=== PATIENT | female | born 1985 | race Caucasian/White ===

== ENCOUNTER → 2017-01-20 | Outpatient (CLI) | payer OTHER ==
[2017-01-20 15:12] VITALS: BP 126/84; PULSE 78; RESP 16; TEMP 98.6; BMI 38.4
--- NOTE | 2017-02-23 23:53 | P.PN ---
Progress Note - Text DATE OF CONSULTATION: 01/20/2017 CHIEF COMPLAINT: Bariatric assessment, initial. HISTORY OF PRESENT ILLNESS: Yomaira Lawson is a 31 -year-old female who reports a previous gastric bypass performed in 2015. Her highest weight is 330 pounds for a 5 foot, 9 inch frame. Her ideal body weight is 168 pounds. She was able to get down to 205 pounds. Thereafter she had been at least 4 times after her gastric bypass. Her weight slowly crept up 220 pounds. She does report lower back pain. She denies any current diabetes. Her weight had become more difficult to control as her in 2012 now 4 years ago. She then regained her weight up to 271 pounds[address] She had seen [address] Patel in [facility] who was our initial bariatric surgeon. She is in the [facility]. Since switch of her insurance to Medicaid, she has not had a consistent or structured bariatric follow-up. She had been placed on Effexor including Zoloft for which her weight gain has slowly increased. She reports feeling hungry all the time. Again, she has been placed on antidepressants due to within her family. She denies any abdominal pain or dumping syndrome. She reports that she has fairly young age children who are between 6 to 12 years. She does report intermittent troubles with panniculitis as well. Now she presents for further evaluation and management. At her height of 5 feet 9 inches, she comes in today weighing 260 pounds. She has maintained a 70 pound weight loss after 11 years. Percent excess weight loss is now reduced to 43%. She is 92 pounds overweight. Body mass index has been reduced from 48.8 down to 38.4. Sustained BMI point reduction is 10.4. PAST MEDICAL HISTORY: 1. Morbid obesity. 2. Depression. 3. Iron deficiency anemia. 4. Anxiety. 5. Ganglion cyst. PAST SURGICAL HISTORY: 1. Gastric bypass 2005 Dr. Patel. 2. Removal of ganglion cyst of the hand. 3. Tubal ligation. MEDICATIONS: 1. Multivitamin. 2. Melatonin. 3. Vitamin D. 4. Iron. 5. ( ). 6. Zoloft. 7. Xanax. ALLERGIES: Denies. SOCIAL HISTORY: Lifelong nontobacco user. She is a . FAMILY HISTORY: Pertinent for morbid obesity. REVIEW OF SYSTEMS: CONSTITUTIONAL: [place] body weight of 168 pounds. Highest weight 330 pounds. Present weight of 260 pounds. Maintained weight loss of 70 pounds. Maintained percent excess weight loss of 43%. She still 92 pounds overweight. Body mass index reduced from 48.8 down to 38.4. Total BMI point reduction of 10.4. HEENT: No reports of dysphagia. Troubles with vision, hearing or nosebleeds. ENDOCRINE: No reports of active diabetes, which is now resolved. No reports of thyroid disorders. RESPIRATORY: Previous history of sleep apnea, resolved. CARDIOVASCULAR: She denies any active hypertension. GASTROINTESTINAL: No reports of dumping syndrome or gastroesophageal reflux disease. She does report increased appetite. MUSCULOSKELETAL: Intermittent osteoarthritis of the lower back now resolved. NEURO: No reports of stroke or seizure disorder. PSYCH: History of depression including anxiety. NEUROLOGICAL: No report of stroke. PSYCH: History of depression without suicidal ideation. Dietary reports increase hunger. PHYSICAL EXAM: VITAL SIGNS: 98.6, 70, 16, 126/84; 5 foot 9, 260 pounds. Body mass and 38.4. GENERAL: Well-developed female in no acute distress. HEENT: No scleral icterus. Grossly intact. Moist buccal mucosa. NECK: Supple without lymphadenopathy. CHEST: Nonlabored respirations. Equal bilateral excursions. CARDIOVASCULAR: Regular rate and rhythm. ABDOMEN: Soft, nontender, nondistended. No palpable incisional hernias. MUSCULOSKELETAL: No clubbing, cyanosis, or edema. NEURO: No focal or lateralizing signs. PSYCH: Appropriate affect. Alert and oriented to person, place, and time. LABS: Pending at this time. ASSESSMENT: 1. With her increase in weight, this is likely secondary to her being placed on her antidepressants which have been reviewed. Alternatives include Wellbutrin that should mitigate weight loss. 2. Thyroid abnormalities may also cause these problems which I recommend a full bariatric metabolic panel. 3. I discussed with her that her bariatric surgeon is also still available; however, he has relocated and would be happy to provide additional information. 4. On exam, she does have mild panniculitis for which nystatin powder is advised. 5. She has regained moderate weight for which with close dietary follow-up can also be resolved. Thank you for this kind consultation.
== END | disposition home or self-care (01) ==
LOC: BARWHC3 13:37
PROVIDERS: ATTEND Surgery Plastic and Reconstructive Surgery
DX: Z48.815 Encounter for surgical aftercare following surgery on the digestive system (principal); Z98.84 Bariatric surgery status; E66.01 Morbid (severe) obesity due to excess calories; E21.1 Secondary hyperparathyroidism, not elsewhere classified; E89.1 Postprocedural hypoinsulinemia; D50.8 Other iron deficiency anemias; E44.0 Moderate protein-calorie malnutrition; E55.9 Vitamin D deficiency, unspecified; K74.1 Hepatic sclerosis; N19 Unspecified kidney failure; K50.90 Crohn's disease, unspecified, without complications
CPT/HCPCS: 99201